=== PATIENT | female | born 1975 | race Caucasian/White ===

== ENCOUNTER → 2023-06-14 | Outpatient (CLI) | payer BC ==
--- NOTE | 2023-06-15 16:02 | MM ---
Reason for Exam: Screening (asymptomatic). Last mammogram was performed 10 year(s) and 6 month(s) ago. Patient History: Menarche at age 16. First Full-Term at age 27. Hysterectomy at age 39. Patient has history of breast feeding. Patient used Hormonal Contraceptives for 2 years. Risk Values: Cherri 5 year model risk: 0.9%. NCI Lifetime model risk: 9.6%. Prior Study Comparison: Patient's first Mammogram. No prior studies available for comparison. Tissue Density: The breast tissue is heterogeneously dense. This may lower the sensitivity of mammography. Findings: Analyzed By CAD. There is a subareolar asymmetric density on the left CC view that could represent superimposition shadow but further evaluation is recommended. In addition, possible obscured nodularity right upper outer quadrant for which further evaluation is recommended. No suspicious microcalcifications or other discrete abnormality is seen. Overall Assessment: Incomplete: need additional imaging evaluation, BI-RAD 0 Management: Special View Mammogram of both breasts. Diagnostic Breast Ultrasound of both breasts. . [facility] will attempt to contact patient to return for supplemental views and ultrasound if indicated. Electronically signed and approved by: Eric Hernández M.D. Radiologist
== END | disposition home or self-care (01) ==
LOC: RADMAMWWP 09:59
PROVIDERS: ATTEND Family Medicine
DX: Z12.31 Encounter for screening mammogram for malignant neoplasm of breast (principal); R92.333 Mammographic heterogeneous density, bilateral breasts; Z90.710 Acquired absence of both cervix and uterus; Z92.0 Personal history of contraception
CPT/HCPCS: 77067

== ENCOUNTER → 2023-06-23 | Outpatient (CLI) | payer BC ==
--- NOTE | 2023-06-23 13:36 | MM ---
Reason for Exam: Additional evaluation requested from abnormal screening. Last screening mammogram was performed less than 1 month ago. Patient History: Menarche at age 16. First Full-Term at age 27. Hysterectomy at age 39. Patient has history of breast feeding. Patient used Hormonal Contraceptives for 2 years. Risk Values: Cherri 5 year model risk: 0.9%. NCI Lifetime model risk: 9.6%. Prior Study Comparison: 12/07/2012 Left Diagnostic Mammogram, [facility]. 06/14/2023 Bilateral MG screening mammo w CAD, [facility]. Tissue Density: The breast tissue is heterogeneously dense. This may lower the sensitivity of mammography. Findings: Analyzed By CAD. Nodular densities upper outer quadrant right breast persists. Ultrasound recommended. No distinct persistent mass left breast. Overall Assessment: Incomplete: need additional imaging evaluation, BI-RAD 0 Management: Diagnostic Breast Ultrasound of the right breast. . Results were given to the patient verbally at the time of exam. Patient should continue monthly self-breast exams. A clinical breast exam by your physician is recommended on an annual basis. This exam should not preclude additional follow-up of suspicious palpable abnormalities. Note on Cherri scores and lifetime risk: 1. A Cherri score greater than 3% is considered moderate risk. If this is the case, consider specialist referral to assess eligibility for a risk reducing agent. 2. If overall lifetime risk for the development of breast cancer is 20% or higher, the patient may qualify for future screening with alternating mammogram and breast MRI. Electronically signed and approved by: Freddy Trejo M.D. Radiologis
--- NOTE | 2023-06-23 14:20 | USB ---
Reason for Exam: Additional evaluation requested from prior study. Patient History: Menarche at age 16. First Full-Term at age 27. Hysterectomy at age 39. Patient has history of breast feeding. Patient used Hormonal Contraceptives for 2 years. Risk Values: Cherri 5 year model risk: 0.9%. NCI Lifetime model risk: 9.6%. Technique: Method: Targeted. Prior Study Comparison: 11/02/2012 Bilateral Screening Mammogram, [facility]. 12/07/2012 Left Diagnostic Mammogram, [facility]. 06/14/2023 Bilateral MG screening mammo w CAD, [facility]. Findings: The upper outer quadrant of the right breast, the axilla of the right breast and the retroareolar of the right breast were scanned. Multiple simple cysts noted. The largest simple cyst is at the right 10:00 position 9 cm from the nipple measuring 2.7 x 1.5 cm. No solid masses seen.. Overall Assessment: Benign, BI-RAD 2 Management: Screening Mammogram of both breasts in 1 year. A clinical breast exam by your physician is recommended on an annual basis and results should be correlated with mammographic findings. This exam should not preclude additional follow-up of suspicious palpable abnormalities. Results were given to the patient verbally at the time of exam. Electronically signed and approved by: Freddy Trejo M.D. Radiologis
== END | disposition home or self-care (01) ==
LOC: RADMAMWWP 13:13
PROVIDERS: ATTEND Family Medicine
DX: N60.01 Solitary cyst of right breast (principal); R92.333 Mammographic heterogeneous density, bilateral breasts
CPT/HCPCS: 77062; 77066

== ENCOUNTER 2023-07-06 09:31 | Day surgery (SDC) | payer BC ==
[~2023-07-06 09:31] MED LIST: LIDOCAINE 1% (10MG/ML) FOR IV START INTRADERMA PRN; ONDANSETRON 4 MG/2 ML VIAL IVP PRN
[2023-07-06] MEDS: LACTATED RINGERS 1,000 ML IV SCH (10:01)
[2023-07-06 10:04] VITALS: RESP 16; TEMP 97.8
[2023-07-06] MEDS ORDERED: LIDOCAINE 1% INJ 10MG/ML (20 ML MDV) ONE (10:24)
[2023-07-06] MEDS ORDERED: PROPOFOL 10 MG/ML 20 ML VIAL IV ONE (10:24)
--- NOTE | 2023-07-06 10:46 | P.PCN ---
Date of Procedure: 07/06/23 Procedure(s) Performed: BRIEF HISTORY: Patient is a 48-year-old pleasant white female scheduled for an elective colonoscopy as a part of screening for colorectal neoplasia. PROCEDURE PERFORMED: Colonoscopy with the biopsy. PREOPERATIVE DIAGNOSIS: . Screening for colon cancer IV sedation per Anesthesia. PROCEDURE: After informed consent was obtained, the patient, was brought into the endoscopy unit. IV sedation was administered by Anesthesia under continuous monitoring. Digital rectal examination was normal. Initially the Olympus CF-160 flexible video colonoscope was then inserted in the rectum, gradually advanced into the cecum without any difficulty. Careful examination was performed as the scope was gradually being withdrawn. Ileocecal valve and the appendiceal orifice were visualized and appeared normal. Prep was excellent. Mucosa of the cecum, ascending colon, transverse colon, descending colon, sigmoid colon, and rectum appeared normal. rectum there was a 3-4 mm sessile polyp that was removed by cold biopsy.Retroflexion was performed in the rectum and no lesions were seen. The patient tolerated the procedure well. IMPRESSION: 3-4 mm rectal polyp status post cold biopsy Rest of the colon appeared normal Recommendations: Findings of this examination were discussed with the patient as well as her family. She was advised to follow with the biopsy results. If the biopsy revealed adenoma she can have a repeat colonoscopy in 5 years..
[2023-07-06 11:36] VITALS: BP 132/70; PULSE 85
== END 2023-07-06 11:22 | disposition home or self-care (01) ==
LOC: ORWHC2ENDO 09:31
PROVIDERS: ATTEND Internal Medicine Gastroenterology
DX: Z12.11 Encounter for screening for malignant neoplasm of colon (principal); K62.1 Rectal polyp; E78.5 Hyperlipidemia, unspecified; Z87.891 Personal history of nicotine dependence; Z79.899 Other long term (current) drug therapy
CPT/HCPCS: 88305; 45380; J2001; J2704